=== PATIENT | female | born 1985 | race Asian ===

== ENCOUNTER 2019-04-15 13:52 | Outpatient (CLI) | payer MEDICAID ==
[2019-04-15 16:15] LABS: FOLLICLE STIMULATING HORMONE 3.57 mIU/mL; PROLACTIN 5.8 ng/mL; THYROID STIMULATING HORMONE 2.16 uIU/mL (0.34-5.60)
[2019-04-16 07:16] LABS: ESTRADIOL 389 pg/mL
[2019-04-17 19:56] LABS: DHEA SULFATE 182 mcg/dL (23-266)
[2019-04-18 22:36] LABS: FREE TESTOSTERONE 3.2 pg/mL (0.1-6.4)
== END 2019-04-15 13:53 | disposition home or self-care (01) ==
LOC: LAB 13:52
PROVIDERS: ATTEND Obstetrics & Gynecology
DX: N92.1 Excessive and frequent menstruation with irregular cycle (principal)
CPT/HCPCS: 36415; 81599; 82627; 82670; 83001; 84146; 84270; 84402; 84403; 84443

== ENCOUNTER 2019-10-11 09:02 | Outpatient (CLI) | payer MEDICAID ==
--- NOTE | 2019-10-11 11:58 | Ultrasound Report ---
Reason: TEST POSITIVE, UTERINE FIBROIDS Procedure Date: 10/11/2019 Accession Number: [id number] / [id number] Procedure: US - OB First Trimester CPT Code: Final Report FULL RESULT: EXAM: FIRST TRIMESTER OBSTETRIC ULTRASOUND (Less than 11 weeks) EXAM DATE: 10/11/2019 10:45 AM. CLINICAL HISTORY: test positive, uterine fibroids. LMP: 08/12/2019. COMPARISONS: None. TECHNIQUE: Transabdominal and transvaginal ultrasound examination with static image documentation. CLINICAL DATES: EGA 8 weeks 4 days with DAVID 05/18/2020 based on LMP. ASSESSMENT: Gestational Sac: Single intrauterine. Mean gestational sac diameter: 8.9 mm = 5 weeks 5 days. Embryo: CRL (crown-rump length) 3.7 mm = 6 weeks 0 days. Cardiac activity: 99 beats per minute. Yolk sac: 4.9 mm. Amniotic fluid: Not accurately assessed at this gestational age. Early placenta: Not visible at this gestational age. Other: A small perigestational fluid collection measuring 3.0 x 1.1 x 0.5 cm is identified. MATERNAL STRUCTURES: Uterus: Anteverted. Note is made of a 1.5 cm fibroid. Cervix: Closed. Right Ovary/Adnexa: The ovary measures 3.7 x 2.7 x 3.0 cm, volume 17 cc. There is a complex debris-containing cyst which measures 1.9 x 1.1 x 1.5 cm. Left Ovary/Adnexa: The ovary measures 4.1 x 2.7 x 3.3 cm, volume 20 cc. A thick-walled bilobed-appearing cyst with retractile-appearing posterior solid component measures 2.0 x 1.1 x 1.5 cm. Free Fluid: None. Other: None. IMPRESSION: 1. Single viable intrauterine at EGA 6 weeks 0 days with DAVID 06/05/2020 based on crown-rump length, which is discordant with LMP. 2. Assigned dating is DAVID 06/05/2020 based on current ultrasound. RADIA
== END 2019-10-11 09:03 | disposition home or self-care (01) ==
LOC: DI 09:02
PROVIDERS: ATTEND Obstetrics & Gynecology
DX: O34.11 Maternal care for benign tumor of corpus uteri, first trimester (principal); Z3A.01 Less than 8 weeks gestation of pregnancy; Z87.410 Personal history of cervical dysplasia; Z32.01 Encounter for pregnancy test, result positive
CPT/HCPCS: 76801; 76817

== ENCOUNTER 2019-10-14 15:48 | Outpatient (CLI) | payer MEDICAID ==
[2019-10-14 16:18] LABS: BASOPHILS % (AUTO) 0.3 %; EOSINOPHILS # (AUTO) 0.1 10^3/uL (0.0-0.7); EOSINOPHILS % (AUTO) 0.7 %; HGB - HEMOGLOBIN 12.6 g/dL (12.0-16.0); LYMPHOCYTES # (AUTO) 2.4 10^3/uL (1.5-3.5); LYMPHOCYTES % (AUTO) 27.6 %; MEAN CORPUSCULAR HEMOGLOBIN 30.4 pg (27.0-31.0); MEAN CORPUSCULAR HGB CONC 33.9 g/dL (32.0-36.0); MEAN CORPUSCULAR VOLUME 89.6 fL (81.0-99.0); MEAN PLATELET VOLUME 10.2 fL (7.9-10.8); MONOCYTES # (AUTO) 0.5 10^3/uL (0.0-1.0); MONOCYTES % (AUTO) 5.6 %; NEUTROPHILS # (AUTO) 5.7 10^3/uL (1.5-6.6); NEUTROPHILS % (AUTO) 65.3 %; PLT - PLATELET COUNT 300 10^3/uL (130-450); RED BLOOD COUNT 4.15 10^6/uL (4.20-5.40); WHITE BLOOD COUNT 8.7 x10^3/uL (4.8-10.8)
[2019-10-15 11:14] LABS: HIV AG/AB 4TH GEN NON-REACTIVE (NON-REACTIVE)
[2019-10-15 11:54] LABS: HEPATITIS B SURFACE ANTIGEN NON-REACTIVE (NON-REACTIVE); HEPATITIS C ANTIBODY NON-REACTIVE (NON-REACTIVE)
== END 2019-10-14 15:49 | disposition home or self-care (01) ==
LOC: LAB 15:48
PROVIDERS: ATTEND Obstetrics & Gynecology
DX: Z34.81 Encounter for supervision of other normal pregnancy, first trimester (principal); Z36.89 Encounter for other specified antenatal screening
CPT/HCPCS: 36415; 81599; 84144; 84443; 84702; 85025; 86592; 86762; 86803; 86850; 86900; 86901; 87340; 87389

== ENCOUNTER 2019-10-15 08:00 | Outpatient (CLI) | payer MEDICAID ==
[2019-10-15 13:55] LABS: MUDS CUTOFF CONCENTRATIONS CUTOFF CONC BELOW:
[2019-10-15 14:02] LABS: BILIRUBIN,URINE NEGATIVE (NEGATIVE); GLUCOSE, URINE (UA) NEGATIVE (NEGATIVE); KETONES,URINE (UA) NEGATIVE (NEGATIVE); LEUKOCYTE ESTERASE, URINE NEGATIVE (NEGATIVE); NITRITE,URINE NEGATIVE (NEGATIVE); OCCULT BLOOD,URINE NEGATIVE (NEGATIVE); PROTEIN,URINE NEGATIVE (NEGATIVE); UROBILINOGEN,URINE 0.2 (NORMAL) E.U./dL (NORMAL)
[2019-10-15 14:03] LABS: CLARITY,URINE CLEAR (CLEAR)
[2019-10-15 14:11] LABS: AMPHETAMINE SCREEN,URINE NEGATIVE (NEGATIVE); BENZODIAZEPINES SCREEN, URINE NEGATIVE (NEGATIVE); COCAINE SCREEN URINE NEGATIVE (NEGATIVE); METHAMPHETAMINES SCREEN, URINE NEGATIVE (NEGATIVE); OPIATE SCREEN, URINE NEGATIVE (NEGATIVE)
[2019-10-15 14:12] LABS: METHADONE SCREEN, URINE NEGATIVE (NEGATIVE); OXYCODONE SCREEN, URINE NEGATIVE (NEGATIVE); PROPOXYPHENE SCREEN, URINE NEGATIVE (NEGATIVE); TRICYCLIC ANTIDEPRESSANT,URINE NEGATIVE (NEGATIVE)
== END 2019-10-15 23:59 | disposition home or self-care (01) ==
LOC: LAB.R 08:00
PROVIDERS: ATTEND Obstetrics & Gynecology
DX: Z34.81 Encounter for supervision of other normal pregnancy, first trimester (principal); Z36.89 Encounter for other specified antenatal screening
CPT/HCPCS: 80306; 81001; 81003; 87086

== ENCOUNTER 2019-10-17 13:45 | Outpatient (CLI) | payer MEDICAID | END 2019-10-17 13:46 | disposition home or self-care (01) | LOC: LAB 13:45 | PROVIDERS: ATTEND Obstetrics & Gynecology | DX: N96 Recurrent pregnancy loss (principal) | CPT/HCPCS: 36415; 84702 ==

== ENCOUNTER 2019-10-20 08:05 | Outpatient (CLI) | payer MEDICAID ==
--- NOTE | 2019-10-20 09:41 | Ultrasound Report ---
Reason: TEST POSITIVE Procedure Date: 10/20/2019 Accession Number: [id number] / [id number] Procedure: US - OB First Trimester CPT Code: Final Report FULL RESULT: EXAM: FIRST TRIMESTER OBSTETRIC ULTRASOUND (Less than 11 weeks) EXAM DATE: 10/20/2019 09:02 AM. CLINICAL HISTORY: High risk due to recurrent loss. LMP: 08/12/2019. COMPARISONS: Obstetric ultrasound from 10/11/2019. TECHNIQUE: Transabdominal and transvaginal ultrasound examination with static image documentation. CLINICAL DATES: EGA 7 weeks 2 days with DAVID 06/05/2020 based on prior ultrasound. ASSESSMENT: Gestational Sac: Single intrauterine. Mean gestational sac diameter: 12 mm = 6 weeks 0 days. Embryo: CRL (crown-rump length) 3.8 mm = 6 weeks 0 days. Cardiac activity: None detected. Yolk sac: 2 mm. Amniotic fluid: Not accurately assessed at this gestational age. Early placenta: Not visible at this gestational age. Other: Heterogeneous perigestational fluid collections are demonstrated, increased from the prior examination. On the right, this collection measures 2.7 x 0.5 x 1.7 cm. On the left, collection measures 1.7 x 1.1 x 1.7 cm. MATERNAL STRUCTURES: Uterus: Anteverted. Intramural fibroid in the posterior lower uterine segment measures 1.7 x 1.2 x 1.3 cm. Cervix: Closed. Right Ovary/Adnexa: The ovary measures 2.9 x 2.2 x 3.0 cm, volume 10.3 cc. There is a homogeneously hyperechoic structure with mild shadowing measuring approximately 1.9 x 1.6 x 1.8 cm. This is suggestive of a teratoma. Left Ovary/Adnexa: The ovary measures 4.0 x 2.7 x 2.9 cm, volume 16.5 cc. Corpus luteum is demonstrated measuring 1.9 x 2.0 x 1.6 cm Free Fluid: Small amounts of fluid present in the cul-de-sac and right adnexa. Other: None. IMPRESSION: 1. Fetus has not grown since the prior examination, and no cardiac activity detected. Findings are compatible with failed early . 2. Increasing perigestational fluid collections, compatible with perigestational hemorrhage. 3. Hyperechoic right ovarian structure is most compatible with a teratoma. This was previously described in the left ovary. However, on review of both the current and prior examinations, the teratoma is definitely in the right ovary. 4. Intramural fibroid in the posterior aspect of the lower uterine segment. RADIA The call report notification system was initiated by Dr. Kwaku Pineda at 09:11 AM on 10/20/2019. The above call report findings regarding failed were discussed with Dr. Rosa by Dr. Kwaku Pineda at 09:22 AM on 10/20/2019.
== END 2019-10-20 08:06 | disposition home or self-care (01) ==
LOC: DI 08:05
PROVIDERS: ATTEND Obstetrics & Gynecology
DX: O02.1 Missed abortion (principal); Z3A.01 Less than 8 weeks gestation of pregnancy; D25.1 Intramural leiomyoma of uterus; D27.0 Benign neoplasm of right ovary
CPT/HCPCS: 76801

== ENCOUNTER 2019-10-24 06:20 | Day surgery (SDC) | payer MEDICAID ==
[~2019-10-24 06:20] MED LIST: ACETAMINOPHEN 1,000 MG/100 ML 100 ML IV ONE; DOXYCYCLINE 100 MG TABLET PO ONE; LACTATED RINGERS 1,000 ML IV ONE
--- NOTE | 2019-10-24 06:54 | ANESTHESIA ---
Pre-Anesthesia VS, & Labs - Diagnosis retained products of conceptions - Procedure D and C Vital Signs: Temp Pulse Resp BP Pulse Ox 36.6 C 74 16 110/81 H 100 10/24/19 06:33 10/24/19 06:33 10/24/19 06:33 10/24/19 06:33 10/24/19 06:33 Height 5 ft 5 in Weight (kg) 70 kg - Is Patient ?: No (retained products of conceptions.) Home Medications and Allergies Home Medications: Ambulatory Orders No Known Home Medications 10/22/19 No Known Home Medications 10/22/19 Allergies/Adverse Reactions: Allergies Allergy/AdvReac Type Severity Reaction Status Date / Time No Known Drug Allergies Allergy Verified 10/22/19 13:50 Anes History & Medical History - Anesthetic History Anesthesia Complications: reports: No previous complications Family history of Anesthesia Complications: Denies Family history of Malignant Hyperthermia: Denies - Medical History Cardiovascular: reports: None, Other Pulmonary: reports: Pneumonia (as a child) Gastrointestinal: reports: None Urinary: reports: None Neuro: reports: None Musculoskeletal: reports: None Endocrine/Autoimmune: reports: None Blood Disorders: reports: None Skin: reports: None Smoking Status: Never smoker Psychosocial: reports: No issues indicated, Anxiety - Surgical History Gynecologic: LEEP (Cervical surgery) Exam General: Alert, Oriented x3, Cooperative, No acute distress Dental: WNL Mouth Openin Fingerbreadth Mallampati classification: III Thyromental Distance: 4-6 cm Respiratory: Lungs clear, Normal breath sounds, No respiratory distress, No accessory muscle use Cardiovascular: Regular rate, Normal S1, Normal S2, No murmurs Abdomen: Normal bowel sounds, Soft, No tenderness, No hepatospenomegaly, No masses Extremities: No clubbing, No cyanosis, No edema, Normal pulses, No tenderness/swelling Neurological: Normal gait, Normal speech, Strength at 5/5 X4 ext, Normal tone, Sensation intact, Cranial nerves 3-12 NL, Reflexes 2+ Mental/Cognitive Status: Alert/Oriented X3, Normal for patient Cognitive Status: Within normal limits Plan Anesthesia Type: General Consent for Procedure(s) Verified and Reviewed: Yes Code Status: Attempt Resuscitation ASA classification: 1-Healthy patient Is this case an emergency?: No
[2019-10-24 07:17] LABS: BASOPHILS % (AUTO) 0.4 %; EOSINOPHILS # (AUTO) 0.1 10^3/uL (0.0-0.7); EOSINOPHILS % (AUTO) 1.4 %; HGB - HEMOGLOBIN 12.1 g/dL (12.0-16.0); LYMPHOCYTES # (AUTO) 2.4 10^3/uL (1.5-3.5); LYMPHOCYTES % (AUTO) 32.8 %; MEAN CORPUSCULAR HGB CONC 32.6 g/dL (32.0-36.0); MEAN CORPUSCULAR VOLUME 91.8 fL (81.0-99.0); MEAN PLATELET VOLUME 9.9 fL (7.9-10.8); MONOCYTES # (AUTO) 0.5 10^3/uL (0.0-1.0); MONOCYTES % (AUTO) 6.3 %; NEUTROPHILS # (AUTO) 4.2 10^3/uL (1.5-6.6); NEUTROPHILS % (AUTO) 58.8 %; PLT - PLATELET COUNT 323 10^3/uL (130-450); RED BLOOD COUNT 4.04 10^6/uL (4.20-5.40); RED CELL DISTRIBUTION WIDTH 13.2 % (12.0-15.0); WHITE BLOOD COUNT 7.2 x10^3/uL (4.8-10.8)
[2019-10-24] MEDS ORDERED: LIDOCAINE 1%-EPI 1:100000 20 ML MDV ONE (07:19)
[2019-10-24] MEDS ORDERED: KETOROLAC 30 MG/ML VIAL IVP ONE (07:37)
[2019-10-24] MEDS ORDERED: DEXAMETHASONE 4 MG/ML VIAL IVP ONE (07:37)
[2019-10-24] MEDS ORDERED: fentaNYL 100 MCG/2 ML VIAL IVP ONE (07:37)
[2019-10-24] MEDS ORDERED: PROPOFOL 200 MG/20 ML VIAL IVP ONE (07:37)
[2019-10-24] MEDS ORDERED: LIDOCAINE-MPF 2% 5 ML VIAL IM ONE (07:37)
[2019-10-24] MEDS ORDERED: MIDAZOLAM 2 MG/2 ML VIAL IVP ONE (07:37)
[2019-10-24] MEDS ORDERED: ACETAMINOPHEN 1,000 MG/100 ML 100 ML IV ONE (07:37)
[2019-10-24] MEDS ORDERED: ONDANSETRON 4 MG/2 ML VIAL IVP ONE (07:37)
[2019-10-24] MEDS ORDERED: LIDOCAINE 1%-EPI 1:100000 20 ML MDV SUBQ ONE (08:00)
[2019-10-24] MEDS ORDERED: oxyCODONE 5 MG TABLET PO PRN (08:24)
--- NOTE | 2019-10-24 08:29 | HISTORY & PHYSICAL EXAMINATION ---
HPI - History Obtained From Records Reviewed: Old records reviewed History obtained from: Patient - History of Present Illness HPI Comment/Other: 34 yo with demise Patient had undergone follow-up ob us on 10/20/19 given history of recurrent pre gnancy loss. No interval growth over one week and heart rate was not present. 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) Social & Family Hx - Social History Smoking Status: Never smoker Meds/Allgy - Home Medications Home Medications: Ambulatory Orders Medication Instructions Recorded Confirmed No Known Home Medications 10/22/19 10/22/19 - Allergies Allergies/Adverse Reactions: Allergies Allergy/AdvReac Type Severity Reaction Status Date / Time No Known Drug Allergies Allergy Verified 10/22/19 13:50 Review of Systems - All Other Systems All Other Systems: reports: Reviewed and negative Exam - Vital Signs Reviewed Vital Signs: Yes Vital Signs: Vital Signs x48h Temp Pulse Resp BP Pulse Ox 10/24/19 08:16 1500.8 F H 118 H 14 127/58 L 100 10/24/19 06:33 97.9 F 74 16 110/81 H 100 - Physical Exam General Appearance: positive: No acute distress Eyes Bilateral: positive: Normal inspection Neck: positive: Nml inspection Respiratory: positive: Chest non-tender, No respiratory distress Cardiovascular: positive: Regular rate & rhythm Abdomen: positive: Non-tender Skin: positive: Color nml Extremities: positive: Non-tender Neurologic/Psychiatric: positive: Oriented x3 Results - Lab Results Fish Bones: 10/24/19 07:10 Other Lab Results: Lab Results x24hrs 10/24/19 Range/Units 07:10 WBC 7.2 (4.8-10.8) x10^3/uL RBC 4.04 L (4.20-5.40) 10^6/uL Hgb 12.1 (12.0-16.0) g/dL Hct 37.1 (37.0-47.0) % MCV 91.8 (81.0-99.0) fL MCH 30.0 (27.0-31.0) pg MCHC 32.6 (32.0-36.0) g/dL RDW 13.2 (12.0-15.0) % Plt Count 323 (130-450) 10^3/uL MPV 9.9 (7.9-10.8) fL Neut # (Auto) 4.2 (1.5-6.6) 10^3/uL Lymph # (Auto) 2.4 (1.5-3.5) 10^3/uL [place] # (Auto) 0.5 (0.0-1.0) 10^3/uL Eos # (Auto) 0.1 (0.0-0.7) 10^3/uL Baso # (Auto) 0.0 (0.0-0.1) 10^3/uL Absolute Nucleated RBC 0.00 x10^3/uL Nucleated RBC % 0.0 /100WBC Impression/Plan - Problem List Problem List: Early loss: Options reviewed and patient opts to proceed with surgical management via suction D&C Risks/benefits/alternatives reviewed Risks include bleeding, infection, damage to nearby tissue and organs, including uterine perforation and bowel damage Written informed consent obtained Doxycycline 100 mg po X1 given prior to procedure Confirmed Rh positive
--- NOTE | 2019-10-24 08:34 | OPERATIVE REPORT ---
Operative Report - General Procedure Date: 10/24/19 Planned Procedure: Suction D&C Pre-Op Diagnosis: Early loss, demise Procedure Performed: Suction D&C Post Op Diagnosis: Same - Procedure Note Primary Surgeon: Elizabet Payne MD Anesthesia Provider: Clover Ritchie CRNA Anesthesia Technique: General LMA Pathology: Uterine contents/products of conception Estimated Blood Loss (mL): 200 Urine Output (mL): 140 Indications: 34 yo with demise confirmed on us, CRL measuring 6+0 wga Findings: Normal appearing gravid uterus and cervix Complications: None - Other Other Information/Narrative: Risks benefits and alternatives to the procedure were reviewed. Consent was again confirmed. Patient was taken to the operating room where she underwent general anesthesia. She was positioned in dorsolithotomy position with legs resting in yellowfin stirrups. She was prepped and draped in the usual sterile fashion. Preoperative oral doxycycline was administered. Preoperative checklist was performed. Exam under anesthesia was performed. Speculum was placed in the vagina and the cervix was visualized. Single-tooth tenaculum was placed at the anterior cervical lip. Paracervical block was administered using a total of 12 cc of 1% lidocaine with epinephrine was injected at the 4:00 and 8:00 positions lateral to the portio of the cervix. The cervical os was serially dilated with Hegar dilators to accommodate the caliber of the 7 mm flexible suction tubing. The catheter was inserted and then connected to the suction, set at 50 mmHg. The catheter was slowly rotated as it was withdrawn from the uterus. Cather was never pushed in a fundal direction while attached to suction. This was repeated until no further tissue was extracted from the uterine cavity. Very gentle sharp curettage was performed to confirm the uterine cavity had been emptied. All instruments were removed from the uterus. Tenaculum was removed. Tenaculum sites were noted to be hemostatic. All instruments were removed from the vagina. Procedure was well-tolerated without complication.
[2019-10-24 10:10] VITALS: BP 103/60
== END 2019-10-24 06:21 | disposition home or self-care (01) ==
LOC: SDS 06:20
PROVIDERS: ATTEND Obstetrics & Gynecology
PROC: 10D17Z9 Manual Extraction of Products of Conception, Retained, Via Natural or Artificial Opening (ICD-10-PCS; principal; 2019-10-24 07:30)
DX: O03.4 Incomplete spontaneous abortion without complication (principal); N96 Recurrent pregnancy loss; Z87.59 Personal history of other complications of pregnancy, childbirth and the puerperium; Z87.410 Personal history of cervical dysplasia; Z87.440 Personal history of urinary (tract) infections; H54.7 Unspecified visual loss
CPT/HCPCS: 36415; 59812; 85025; A9270; J0131; J7120

== ENCOUNTER 2020-10-27 14:25 | Outpatient (CLI) | payer MEDICAID ==
[2020-10-27 15:36] LABS: HCT - HEMATOCRIT 43.3 % (37.0-47.0); HGB - HEMOGLOBIN 14.2 g/dL (12.0-16.0); MEAN CORPUSCULAR HEMOGLOBIN 30.1 pg (27.0-31.0); MEAN CORPUSCULAR HGB CONC 32.8 g/dL (32.0-36.0); MEAN CORPUSCULAR VOLUME 91.7 fL (81.0-99.0); MEAN PLATELET VOLUME 10.1 fL (7.9-10.8); RED BLOOD COUNT 4.72 10^6/uL (4.20-5.40); RED CELL DISTRIBUTION WIDTH 12.7 % (12.0-15.0); WHITE BLOOD COUNT 9.6 x10^3/uL (4.8-10.8)
[2020-10-27 15:47] LABS: ESTIMATED AVERAGE GLUCOSE 88 mg/dL (70-100); HEMOGLOBIN A1c% 4.7 % (4.27-6.07)
[2020-10-27 16:25] LABS: ALBUMIN 4.6 g/dL (3.2-5.5); ALBUMIN/GLOBULIN RATIO 1.6 (1.0-2.2); BILIRUBIN,TOTAL 0.7 mg/dL (0.2-1.0); CALCIUM 9.4 mg/dL (8.5-10.3); CREATININE 0.9 mg/dL (0.4-1.0); POTASSIUM 4.1 mmol/L (3.5-5.0); TOTAL PROTEIN 7.4 g/dL (6.7-8.2)
[2020-10-27 16:33] LABS: THYROID STIMULATING HORMONE 2.64 uIU/mL (0.34-5.60)
[2020-10-27 16:39] LABS: FERRITIN 55.8 ng/mL (11.0-306.8)
[2020-10-27 16:40] LABS: PROLACTIN 5.89 ng/mL
[2020-10-28 03:38] LABS: PROGESTERONE 12.7 ng/mL
== END 2020-10-27 14:26 | disposition home or self-care (01) ==
LOC: LAB 14:25
PROVIDERS: ATTEND Obstetrics & Gynecology
DX: N96 Recurrent pregnancy loss (principal); Z13.1 Encounter for screening for diabetes mellitus; Z13.21 Encounter for screening for nutritional disorder; Z87.410 Personal history of cervical dysplasia; Z31.69 Encounter for other general counseling and advice on procreation
CPT/HCPCS: 36415; 80053; 81599; 82306; 82728; 83036; 83520; 83540; 84144; 84146; 84443; 84466; 84702; 85027; 85613; 85730; 86146; 86147; 86762; 86787; 88230; 88262

== ENCOUNTER 2021-01-13 13:04 | Outpatient (CLI) | payer MEDICAID | END 2021-01-13 13:05 | disposition home or self-care (01) | LOC: LAB 13:04 | PROVIDERS: ATTEND Obstetrics & Gynecology | DX: Z32.01 Encounter for pregnancy test, result positive (principal); Z31.69 Encounter for other general counseling and advice on procreation | CPT/HCPCS: 36415; 84144; 84702; 86900; 86901 ==

== ENCOUNTER 2021-01-16 12:23 | Outpatient (CLI) | payer MEDICAID | END 2021-01-16 12:24 | disposition home or self-care (01) | LOC: LAB 12:23 | PROVIDERS: ATTEND Obstetrics & Gynecology | DX: N96 Recurrent pregnancy loss (principal) | CPT/HCPCS: 36415; 84702 ==

== ENCOUNTER 2021-01-28 08:00 | Outpatient (CLI) | payer MEDICAID ==
[2021-01-29 13:11] LABS: BILIRUBIN,URINE NEGATIVE (NEGATIVE); GLUCOSE, URINE (UA) NEGATIVE (NEGATIVE); KETONES,URINE (UA) NEGATIVE (NEGATIVE); LEUKOCYTE ESTERASE, URINE NEGATIVE (NEGATIVE); NITRITE,URINE NEGATIVE (NEGATIVE); OCCULT BLOOD,URINE NEGATIVE (NEGATIVE); PH,URINE 6.5 PH (5.0-7.5); PROTEIN,URINE NEGATIVE (NEGATIVE); UROBILINOGEN,URINE 0.2 (NORMAL) E.U./dL (NORMAL)
[2021-01-29 13:12] LABS: CLARITY,URINE CLEAR (CLEAR)
[2021-01-29 13:32] LABS: BACTERIA,URINE None Seen /HPF (None Seen); RBC,URINE 0-5 /HPF (0-5); SQUAMOUS EPITHELIAL CELL,UR RARE Squamous (<= Few); WBC,URINE 0-3 /HPF (0-5)
== END 2021-01-28 23:59 | disposition home or self-care (01) ==
LOC: LAB.R 08:00
PROVIDERS: ATTEND Obstetrics & Gynecology
DX: Z32.01 Encounter for pregnancy test, result positive (principal)
CPT/HCPCS: 81001; 87086

== ENCOUNTER 2021-01-28 15:33 | Outpatient (CLI) | payer MEDICAID ==
[2021-01-28 16:03] LABS: BASOPHILS % (AUTO) 0.3 %; EOSINOPHILS # (AUTO) 0.1 10^3/uL (0.0-0.7); EOSINOPHILS % (AUTO) 0.8 %; HCT - HEMATOCRIT 37.9 % (37.0-47.0); HGB - HEMOGLOBIN 12.8 g/dL (12.0-16.0); LYMPHOCYTES # (AUTO) 2.4 10^3/uL (1.5-3.5); LYMPHOCYTES % (AUTO) 23.7 %; MEAN CORPUSCULAR HEMOGLOBIN 30.2 pg (27.0-31.0); MEAN CORPUSCULAR HGB CONC 33.8 g/dL (32.0-36.0); MEAN CORPUSCULAR VOLUME 89.4 fL (81.0-99.0); MEAN PLATELET VOLUME 10.3 fL (7.9-10.8); MONOCYTES # (AUTO) 0.6 10^3/uL (0.0-1.0); MONOCYTES % (AUTO) 6.2 %; NEUTROPHILS # (AUTO) 6.9 10^3/uL (1.5-6.6); NEUTROPHILS % (AUTO) 68.7 %; PLT - PLATELET COUNT 296 10^3/uL (130-450); RED BLOOD COUNT 4.24 10^6/uL (4.20-5.40); RED CELL DISTRIBUTION WIDTH 12.8 % (12.0-15.0); WHITE BLOOD COUNT 10.1 x10^3/uL (4.8-10.8)
[2021-01-28 16:30] LABS: THYROID STIMULATING HORMONE 1.45 uIU/mL (0.34-5.60)
[2021-01-29 11:41] LABS: HEPATITIS B SURFACE ANTIGEN NON-REACTIVE (NON-REACTIVE); HEPATITIS C ANTIBODY NON-REACTIVE (NON-REACTIVE)
[2021-01-29 14:31] LABS: HIV AG/AB 4TH GEN NON-REACTIVE (NON-REACTIVE)
== END 2021-01-28 15:34 | disposition home or self-care (01) ==
LOC: LAB 15:33
PROVIDERS: ATTEND Obstetrics & Gynecology
DX: Z32.01 Encounter for pregnancy test, result positive (principal); Z13.1 Encounter for screening for diabetes mellitus
CPT/HCPCS: 36415; 81001; 82306; 84443; 84702; 85025; 86592; 86762; 86787; 86803; 86850; 86900; 86901; 87086; 87340; 87389

== ENCOUNTER 2021-03-15 14:50 | Outpatient (CLI) | payer MEDICAID ==
--- NOTE | 2021-03-15 20:24 | Ultrasound Report ---
PROCEDURE: OB First Trimester w/TV INDICATIONS: POSITIVE TEST OUTSIDE/PRIOR DATING DATA: Last menstrual period (LMP): 12/15/2020. LMP-based estimated date of delivery (DAVID): 09/21/2021. First dating scan (date and location): 03/15/2021. Estimated date of delivery (DAVID) from first dating scan: 09/17/2021. The below data below was generated using the machine generated DAVID of 09/17/2021 TECHNIQUE: Real-time scanning was performed of the fetus and maternal pelvic organs, with image documentation. Endovaginal scanning was also performed to better visualize the fetus and maternal ovaries. COMPARISON: Pelvic ultrasound dated 05/03/2020 FINDINGS: Embryo: Single intrauterine gestational sac is seen containing a live fetus. [place]-rump length measu res 7.2 cm with estimated gestational age of 13 weeks, 3 days. Heart rate: 150 bpm. Cervix is closed and visually normal in length. Measurement variability in dating: +/- 4 weeks by LMP, +/- 7 days by mean sac diameter (use before 6 weeks gestation if crown-rump length not able to be measured), +/- 5 days by crown-rump length (6-12 weeks gestation). Maternal organs: Likely corpus luteal cyst is noted in left ovary measures 2.3 x 1.5 x 2.2 cm in size . A small follicle versus complex cyst is seen in left ovary measures 1 cm in size. Patient's known 1 .3 cm right posterior myometrial fibroid is again seen and now measures 3.1 x 2.5 x 2.5 cm in size.. Previously described 2 cm ovoid in right ovary is again seen now measures 2.1 x 2.9 x 2.1 cm in size. IMPRESSION: 1. Single live intrauterine gestation with heart rate measures 150 bpm. Estimated gestational a ge based on current study is 13 weeks, 3 days. 2. Right posterior myometrial fibroid enlarged in size compared to 2019 study. Slightly enlarged righ t ovarian dermoid as above. Likely corpus luteal cyst in left ovary. Reviewed by: Chase Armstrong MD on 03/15/2021 8:23 PM PDT Approved by: Chase Armstrong MD on 03/15/2021 8:23 PM PDT Station ID: [id number]
== END 2021-03-15 14:51 | disposition home or self-care (01) ==
LOC: DI 14:50
PROVIDERS: ATTEND Obstetrics & Gynecology
DX: O34.11 Maternal care for benign tumor of corpus uteri, first trimester (principal); D25.9 Leiomyoma of uterus, unspecified; O99.891 Other specified diseases and conditions complicating pregnancy; D27.0 Benign neoplasm of right ovary; R93.89 Abnormal findings on diagnostic imaging of other specified body structures; Z3A.13 13 weeks gestation of pregnancy

== ENCOUNTER 2021-03-15 16:06 | Outpatient (CLI) | payer MEDICAID | END 2021-03-15 16:07 | disposition home or self-care (01) | LOC: LAB 16:06 | PROVIDERS: ATTEND Obstetrics & Gynecology | DX: Z34.90 Encounter for supervision of normal pregnancy, unspecified, unspecified trimester (principal) | CPT/HCPCS: 81220; 81243; 81329; 81599 ==

== ENCOUNTER 2021-05-05 15:36 | Outpatient (CLI) | payer MEDICAID ==
--- NOTE | 2021-05-05 19:16 | Ultrasound Report ---
PROCEDURE: OB Detailed Eval INDICATIONS: OUTSIDE/PRIOR DATING DATA: Last menstrual period (LMP): 12/15/2020. LMP-based estimated date of delivery (DAVID): 09/21/2021. First dating scan (date and location): 03/15/2021. Estimated date of delivery (DAVID) from first dating scan: 09/17/2021. TECHNIQUE: Real-time scanning was performed of the fetus, with image documentation and biometric measurements. Endovaginal scanning: None COMPARISON: 03/15/2021 FINDINGS: General: A single living intrauterine gestation is present. Presentation: Transverse, variable Placenta: Placental position is anterior, without complete previa. Placental tip is 1.3 cm from the internal os Amniotic fluid index: 16.3 cm, normal for gestational age. heart rate: 41 beats per minute. Maternal cervical canal: 4.2 cm long; normal length is 2.5 cm or more. Maternal: Uterine fibroid noted measuring 2.8 x 2.7 x 3.0 cm it. There is corpus luteum cyst measurin g 2 cm on the left, and shadowing probable dermoid in the right adnexa measuring 2.3 x 2.5 cm. biometrics: Biparietal diameter: 4.49 cm, 19 week 4 day Head circumference: 17.12 cm, 19 week 5 day Abdominal circumference: 14.76 cm, 20 week 0 day Femur length: 3.31 cm, 20 week 2 day Estimated gestational age from initial scan: 20 week 5 day Composite gestational age from present scan: 19 week 5 day Estimated weight and percentile: 333.3 g, 17.4 percentile Measurement variability in biometric dating: +/- 10 days from 12-20 weeks gestation, +/- 2 weeks from 20-30 weeks gestation, +/- 3 weeks at 30 weeks gestation or later. Anatomic survey: Neuro: Ventricles are normal at less than 10 mm. Cisterna magna is normal at 3-11 mm. Cerebellum i s normal in size and morphology. Incidental choroid plexus cyst noted in the lateral ventricular atr ium measuring 6.3 mm Nuchal skin fold: Normal at less than 6 mm between 14 and 20 weeks gestational age. Face: Nose and lips, facial profile are normal. Spine: No evidence for spina bifida. Heart: 4-chambered heart is present, with normal ventricular outflow tracts. Possible ventricular e chogenic focus noted. Diaphragm: Diaphragm is intact. Stomach: Left-sided stomach is present. Kidneys: No hydronephrosis. Both renal pelvises measure less than 4 mm. Normal is less than 5 mm in 2nd trimester, less than 7 mm in 3rd trimester. Cord: 3 vessel cord has orthotopic insertion. Bladder: Normal in size. Extremities: All 4 extremities are visualized. IMPRESSION: Single live intrauterine consistent with 19 week 5 day gestation by current ultrasound. Intracranial choroid plexus cyst and small intraventricular echogenic focus can be further evaluated on follow-up scans. Maternal right adnexal 2.5 cm probable dermoid cyst and 3 cm uterine fibroid, stable Reviewed by: Claude Turpin MD on 05/05/2021 6:15 PM FLORENTIN Approved by: Claude Turpin MD on 05/05/2021 6:15 PM AKCHARBEL Station ID: [id number]
== END 2021-05-05 15:37 | disposition home or self-care (01) ==
LOC: DI 15:36
PROVIDERS: ATTEND Obstetrics & Gynecology
DX: Z34.92 Encounter for supervision of normal pregnancy, unspecified, second trimester (principal)

== ENCOUNTER 2023-12-09 00:50 | Emergency (ER) | payer MEDICAID ==
[2023-12-09 01:05] VITALS: O2SAT 99
[2023-12-09 03:03] LABS: ALBUMIN 4.6 g/dL (3.2-5.5); ALBUMIN/GLOBULIN RATIO 1.4 (1.0-2.2); BILIRUBIN,TOTAL 1.3 mg/dL (0.2-1.0); CALCIUM 9.9 mg/dL (8.5-10.3); CREATININE 0.8 mg/dL (0.6-1.3); POTASSIUM 3.9 mmol/L (3.5-4.5); TOTAL PROTEIN 7.8 g/dL (6.4-8.9)
[2023-12-09 03:07] LABS: BILIRUBIN,URINE SMALL (NEGATIVE); GLUCOSE, URINE (UA) NEGATIVE (NEGATIVE); KETONES,URINE (UA) NEGATIVE (NEGATIVE); LEUKOCYTE ESTERASE, URINE SMALL (NEGATIVE); NITRITE,URINE NEGATIVE (NEGATIVE); OCCULT BLOOD,URINE NEGATIVE (NEGATIVE); PH,URINE 8.5 PH (5.0-7.5); PROTEIN,URINE NEGATIVE (NEGATIVE); UROBILINOGEN,URINE 2 E.U./dL (NORMAL)
[2023-12-09 03:09] LABS: BASOPHILS % (AUTO) 0.2 %; EOSINOPHILS % (AUTO) 0.1 %; HCT - HEMATOCRIT 45.3 % (37.0-47.0); HGB - HEMOGLOBIN 14.5 g/dL (12.0-16.0); LYMPHOCYTES # (AUTO) 1.2 10^3/uL (1.5-3.5); LYMPHOCYTES % (AUTO) 9.8 %; MEAN CORPUSCULAR HEMOGLOBIN 29.2 pg (27.0-31.0); MEAN CORPUSCULAR VOLUME 91.1 fL (81.0-99.0); MEAN PLATELET VOLUME 10.3 fL (7.9-10.8); MONOCYTES # (AUTO) 0.6 10^3/uL (0.0-1.0); MONOCYTES % (AUTO) 4.6 %; NEUTROPHILS # (AUTO) 10.3 10^3/uL (1.5-6.6); PLT - PLATELET COUNT 358 10^3/uL (130-450); RED BLOOD COUNT 4.97 10^6/uL (4.20-5.40); RED CELL DISTRIBUTION WIDTH 13.5 % (12.0-15.0); WHITE BLOOD COUNT 12.2 x10^3/uL (4.8-10.8)
[2023-12-09 03:23] LABS: CLARITY,URINE SL. CLOUDY (CLEAR); HCG UR QUAL NEGATIVE
[2023-12-09 03:26] LABS: AMORPHOUS SEDIMENT,UR Moderate /LPF; BACTERIA,URINE Rare /HPF (None Seen); RBC,URINE 0-5 /HPF (0-5); SQUAMOUS EPITHELIAL CELL,UR MOD Squamous (<= Few); WBC,URINE 0-3 /HPF (0-5)
--- NOTE | 2023-12-09 03:49 | ED Physician Documentation ---
PD HPI ABD PAIN - Stated complaint Stated Complaint: ABD CRAMPING - Chief complaint Chief Complaint: Abd Pain - History obtained from History obtained from: Patient, Family () - History of Present Illness Timing - onset: Today Timing - duration: Hours Timing - details: Abrupt onset, Still present Quality: Cramping, Sharp, Pain Location: RUQ Radiation: Right flank Improved by: Laying still Worsened by: Moving, Breathing, Position, Palpation Associated symptoms: Nausea, Vomiting (once today) Similar symptoms before: Has not had sx before Recently seen: Not recently seen - Additional information Additional information: Yuni Coto is a 38-year-old previously well female who has developed right upper quadrant pain and episodes. She has had these after eating and the usually last 4 to 5 hours. She has had these episodes for the past 2 weeks. This evening she has severe episode after not eating much. She is come to the emergency department for evaluation now. She does have a high pain tolerance. She is otherwise well she has had 1 prior operation a D&C for miscarriage. Denies alcohol use. Review of Systems Constitutional: denies: Fever Ears: denies: Ear pain Nose: denies: Congestion Throat: denies: Sore throat Cardiac: denies: Chest pain / pressure, Palpitations Respiratory: denies: Dyspnea, Cough GI: reports: Abdominal Pain, Nausea, Vomiting. 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, LEEP (Cervical surgery) - Present Medications Home Medications: Ambulatory Orders Medication Instructions Recorded Confirmed Liraglutide [Victoza 2-Abhi] 10 units SUBQ DAILY 12/09/23 12/09/23 Sertraline HCl 1 tab PO DAILY 12/09/23 12/09/23 - Allergies Allergies/Adverse Reactions: Allergies Allergy/AdvReac Type Severity Reaction Status Date / Time No Known Drug Allergies Allergy Verified 12/09/23 01:00 - Social History Does the pt smoke?: No Smoking Status: Never smoker Does the pt drink ETOH?: Yes ETOH Use: Wine, Beer, Liquor - Immunizations Immunizations are current?: Yes PD ED PE NORMAL - Vitals Vital signs reviewed: Yes (Normal) - General General: Alert and oriented X 3, No acute distress, Well developed/nourished - HEENT HEENT: Atraumatic, PERRL, EOMI - Neck Neck: Supple, no meningeal sign, No bony TTP - Cardiac Cardiac: RRR, No murmur - Respiratory Respiratory: No respiratory distress, Clear bilaterally - Abdomen Abdomen: Normal bowel sounds, Soft, Non distended, No organomegaly, Other (Mild right upper quadrant tenderness with worsening with a deep breath.) - Back Back: No CVA TTP, No spinal TTP - Derm Derm: Normal color, Warm and dry, No rash - Extremities Extremities: No deformity, No edema - Neuro Neuro: Alert and oriented X 3, 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, No motor deficit, No sensory deficit, Normal speech Eye Opening: Spontaneous Motor: Obeys Commands Verbal: Oriented GCS Score: 15 - Psych Psych: Normal mood, Normal affect Results - Vitals Vitals: Vital Signs - 24 hr 12/09/23 12/09/23 00:55 04:15 Temperature 36.4 C L Heart Rate 73 80 Respiratory 22 16 Rate Blood Pressure 112/71 106/63 O2 Saturation 99 99 Oxygen O2 Source Room air - Labs Labs: Laboratory Tests 12/09/23 12/09/23 12/09/23 02:32 02:32 02:55 WBC 12.2 H RBC 4.97 Hgb 14.5 Hct 45.3 MCV 91.1 MCH 29.2 MCHC 32.0 RDW 13.5 Plt Count 358 MPV 10.3 Neut # (Auto) 10.3 H Lymph # (Auto) 1.2 L [place]th[place] # (Auto) 0.6 Eos # (Auto) 0.0 Baso # (Auto) 0.0 Absolute Nucleated RBC 0.00 Nucleated RBC % 0.0 Sodium 137 Potassium 3.9 Chloride 101 Carbon Dioxide 28 Anion Gap 8.0 BUN 15 Creatinine 0.8 Estimated GFR (MDRD) 79 L Glucose 98 Calcium 9.9 Total Bilirubin 1.3 H AST 460 H ALT 324 H Alkaline Phosphatase 170 H Total Protein 7.8 Albumin 4.6 Globulin 3.2 Albumin/Globulin Ratio 1.4 Lipase 17 Urine Color YELLOW Urine Clarity SL. CLOUDY Urine pH 8.5 H Ur Specific [place] 1.015 Urine Protein NEGATIVE Urine Glucose (UA) NEGATIVE Urine Ketones NEGATIVE Urine Occult Blood NEGATIVE Urine Nitrite NEGATIVE Urine Bilirubin SMALL H Urine Urobilinogen 2 H Ur Leukocyte Esterase SMALL H Urine RBC 0-5 Urine WBC 0-3 Ur Squamous Epith Cells MOD Squamous H Amorphous Sediment Moderate Urine Bacteria Rare Ur Microscopic Review INDICATED Urine Culture Comments NOT INDICATED Urine HCG, Qual NEGATIVE Procedures - Bedside sono Bedside sono by EMP: With use of POCUS I did evaluate the right upper quadrant finding and enlarged gallbladder that was sonographically mildly tender but without gallbladder wall thickening or pericholecystic fluid. There were not obvious stones present. PD Medical Decision Making - ED course Complexity details: reviewed old records, reviewed results, re-evaluated patient, considered differential, d/w patient, d/w family Reviewed Lab Results: We reviewed a complete blood count showing a white blood cell count elevated at 12.2 normal hemoglobin hematocrit and platelets chemistries showed normal electrolytes kidney functions were normal and the liver functions were abnormal. Total bilirubin was elevated at 1.3 AST elevated at 460 ALT elevated at 324 and alkaline phosphatase elevated at 170 lipase was normal at 17. I compared blood work the patient had done in 2020 that showed normal liver functions. My interpretation of these results indicate the patient likely has a problem with her gallbladder as history would indicate.The bilirubin is not elevated enough to consider choledocholithiasis. Departure - Departure Disposition: 01 Home, Self Care Clinical Impression: Gall bladder disease Condition: Stable Instructions: ED Abdominal Pain Gallstone Poss, ED Diet Low Fat Follow-Up: Oscar Hills MD [Provider Admit Priv/Credential] - Comments: Yuni, today it looks like you have a problem with your gallbladder. I do not specifically see stones on the bedside ultrasound but your history and physical and blood work all indicate a problem with your gallbladder. There can sometimes be sludge in the gallbladder which does not show up as stones and still give you the problem. We did not have an gameroom technician production analyst overnight and they have made arrangements for you to be seen at 8:30 AM today for formal ultrasound. The follow-up from this should be with Dr. Nirmal Hills and I have given you his number above. Call his office to make the appointment. If you develop pain that you are unable to control return to the emergency department for pain control. In the meantime a diet low in fat is recommended. Discharge Date/Time: 12/09/23 04:17
[2023-12-09 04:25] VITALS: BP 106/63
--- NOTE | 2023-12-10 10:04 | Ultrasound Report ---
PROCEDURE: Abdomen Complete INDICATIONS: ABD PX TECHNIQUE: Real-time scanning was performed of the abdominal and retroperitoneal organs, with image documentatio n. COMPARISON: None. FINDINGS: Liver: Echo pattern is somewhat heterogeneous and mildly echogenic suggesting possible mild diffuse hepatic steatosis. Gallbladder: Multiple gallstones are present in the gallbladder. There is no pain on examination. The re is no fluid around the gallbladder. Gallbladder is somewhat contracted with mildly prominent wall thickening. Cystic duct: There is an echogenic focus present, possibly representing a cystic duct stone. Biliary ducts: Intrahepatic bile ducts are non-dilated. Extrahepatic bile duct caliber measures 4 m m. Normal is 6-7 mm or less in diameter, or 10 mm or less post-cholecystectomy. Pancreas: Visualized portions of the pancreas are sonographically normal. Spleen: Spleen is normal in size and homogeneous in echotexture. Kidneys: Kidneys are normal in size and echotexture. Right kidney measures 9.2 cm long; left kidney measures 9.7 cm long. No hydronephrosis or nephrolithiasis. No solid masses. No complex renal cyst ic lesions which require follow-up. Aorta: Visualized aorta is normal in caliber at 1.7 cm or less. Iliacs: Proximal common iliac arteries are normal in caliber at 0.7 cm bilaterally. IVC: Intrahepatic inferior vena cava is patent. Miscellaneous: No free abdominal fluid. IMPRESSION: 1. Question mild diffuse hepatic steatosis. 2.. Cholelithiasis. 2. Question cystic duct stone Consider MRCP to evaluate possible cystic duct stone Reviewed by: Kurt Reed MD on 12/10/2023 10:03 AM PDT Approved by: Kurt Reed MD on 12/10/2023 10:03 AM PDT Station ID: [id number]
== END 2023-12-09 04:17 | disposition home or self-care (01) ==
LOC: ED 00:50
DX: K82.9 Disease of gallbladder, unspecified (principal)
CPT/HCPCS: 36415; 80053; 81001; 81003; 81025; 83690; 85025; 87086; 99284